=== PATIENT | female | born 1945 | race Caucasian/White ===

== ENCOUNTER 2017-08-07 12:36 | Inpatient (IN) | payer MEDICARE, BC ==
--- NOTE | 2017-08-07 13:15 | EDM.PDOC ---
ED HPI GENERAL MEDICAL PROBLEM - General Chief Complaint: Lower Extremity Injury/Pain Stated Complaint: BY AMBULANCE Time Seen by Provider: 08/07/17 13:05 Source of Information: Reports: Patient History Limitations: Reports: No Limitations - History of Present Illness INITIAL COMMENTS - FREE TEXT/NARRATIVE: Patient comes emergency Department from home by ambulance with complaints of a fall at home. Just prior to arrival patient was at home in a door was stuck closed and she was using her left arm to try to open it. She tried to shove it open with her left shoulder/arm and ended up falling on her left side injuring her left shoulder left elbow and left hip. She denies any loss of consciousness. She denies any head and neck or back pain. She denies any numbness or tingling to any of her extremities. She does complain of left shoulder pain on palpation as well as left elbow swelling and tenderness. She also complains of tenderness to her left hip. She denies any change in her bowel or bladder habits. She refuses to have a tetanus shot. She does have an abrasion on the left elbow. Left Arm Pain Score (Numeric/FACES): 5 Hip Pain Score (Numeric/FACES): 5 - Related Data Allergies Allergy/AdvReac Type Severity Reaction Status Date / Time butorphanol tartrate Allergy Cannot Verified 06/01/16 07:48 [From Stadol] Remember gabapentin Allergy Nausea Verified 06/01/16 07:48 penicillin Allergy Rash Verified 06/01/16 07:48 propoxyphene HCl Allergy Nausea Verified 06/01/16 07:48 [From Darvon] Home Meds: Home Meds Ascorbic Acid 500 mg PO DAILY 08/02/15 [History] Aspirin [Low Dose Aspirin EC] 81 mg PO DAILY 08/02/15 [History] Calcium Carbonate/Vitamin D3 [Calcium 600 + Vit D 400 Tablet] 1 each PO BID [History] Cranberry 500 mg PO BID 08/02/15 [History] Docusate Sodium 100 mg PO BID PRN 08/02/15 [History] Glimepiride 1 mg PO WITHBREAKFAST 08/02/15 [History] Glucosamine [Glucosamine Sulfate] 500 mg PO DAILY 08/02/15 [History] Loratadine [Claritin] 10 mg PO DAILY PRN 08/02/15 [History] Melatonin 3 mg PO BEDTIME 08/02/15 [History] atorvaSTATin [Lipitor] 20 mg PO DAILY 08/02/15 [History] metFORMIN [Glucophage XR] 500 mg PO BIDMEALS 08/02/15 [History] Clobetasol Propionate 1 applic TOP ASDIRECTED 05/28/16 [History] Fluticasone Propionate [Flonase Allergy Relief] 1 squirt NASBOTH DAILY 05/28/16 [History] Ibuprofen [Advil] 400 mg PO Q6H PRN 05/28/16 [History] Magnesium Hydroxide [Milk of Magnesia] 30 ml PO DAILY PRN 05/28/16 [History] Past Medical History HEENT History: Reports: Impaired Vision Cardiovascular History: Reports: Blood Clots/VTE/DVT, High Cholesterol Respiratory History: Reports: None Gastrointestinal History: Reports: Diverticulosis, Hepatitis, Irritable Bowel Syndrome Genitourinary History: Reports: Renal 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: Other OB/BYN History: ovarian cyst Musculoskeletal History: Reports: Arthritis, Back Pain, Chronic, Other (See Below) Other Musculoskeletal History: HX OF LEFT DISTAL FIBULA FRACTURE; DDD; CHRONIC LEFT SI JOINT; HX OF HUMERUS AND RADIUS ULNA FRACTURE Neurological History: Reports: None Psychiatric History: Reports: None Endocrine/Metabolic History: Reports: Diabetes, Type II, Obesity/BMI 30+, Osteopenia Hematologic History: Reports: None Immunologic History: Reports: None Oncologic (Cancer) History: Reports: None Dermatologic History: Reports: None - Past Surgical History Head Surgeries/Procedures: Reports: None Respiratory Surgical History: Reports: None Female Surgical History: Reports: Hysterectomy, Salpingo-Oophorectomy, Tubal Ligation, Other (See Below) Neurological Surgical History: Reports: None Musculoskeletal Surgical History: Reports: ORIF, Other (See Below) Oncologic Surgical History: Reports: None Dermatological Surgical History: Reports: None Social & Family History - Tobacco Use Smoking Status *Q: Never Smoker Second Hand Smoke Exposure: No - Caffeine Use Caffeine Use: Reports: Coffee - Recreational Drug Use Recreational Drug Use: No Review of Systems - Review of Systems Review Of Systems: ROS reveals no pertinent complaints other than HPI. ED EXAM, GENERAL - Physical Exam Exam: See Below Exam Limited By: No Limitations General Appearance: Alert, WD/WN, No Apparent Distress Eye Exam: Bilateral Eye: Normal Inspection Nose: Normal Inspection, Normal Mucosa Throat/Mouth: Normal Inspection Head: Atraumatic, Normocephalic Neck: Normal Inspection, Supple, Non-Tender, Full Range of Motion Respiratory/Chest: No Respiratory Distress, Lungs Clear, Normal Breath Sounds, No Accessory Muscle Use, Chest Non-Tender Cardiovascular: Normal Peripheral Pulses, Regular Rate, Rhythm Peripheral Pulses: 2+: Radial (L), Radial (R), Posterior Tibial (L), Posterior Tibial (R), Dorsalis Pedis (L), Dorsalis Pedis (R) GI/Abdominal: Normal Bowel Sounds, Soft, Non-Tender (Female) Exam: Deferred Rectal (Female) Exam: Deferred Back Exam: Normal Inspection, Full Range of Motion. No: CVA Tenderness (L), CVA Tenderness (R), Decreased Range of Motion, Muscle Spasm, Paraspinal Tenderness, Vertebral Tenderness Extremities: No Pedal Edema, Normal Capillary Refill, Limited Range of Motion ( To the left elbow.), Other (The left elbow on the posterior aspect does have approximately golf ball size hematoma as well as a small abrasion. There is no bony deformity or crepitus. Left shoulder is mildly tender on the very lateral aspect. She is able to put it through range of motion without severe pain. Tenderness to the left hip on palpation. No bony deformity crepitus bruising around normality. Decreased range of motion due to pain.) Neurological: Alert, Oriented, CN II-XII Intact, Normal Cognition, Normal Reflexes, No Motor/Sensory Deficits Psychiatric: Normal Affect, Normal Mood Skin Exam: Warm, Dry, Normal Color Lymphatic: No Adenopathy Course - Vital Signs Last Recorded V/S: Last Vital Signs Temp 36.3 C 08/07/17 12:51 Pulse 79 08/07/17 12:51 Resp 18 08/07/17 12:51 BP 106/59 L 08/07/17 16:23 Pulse Ox 100 08/07/17 12:51 Vital Signs 08/07/17 08/07/17 08/07/17 12:48 12:51 13:10 Temperature [ 36.3 C 36.3 C Temporal] Pulse, 76 79 Peripheral [ Right Pulse Oximetry] Respiratory 19 18 Rate Blood Pressure 139/60 131/69 124/65 [Right Upper Arm] O2 Sat by Pulse 94 L 100 Oximetry 08/07/17 08/07/17 16:16 16:23 Temperature [ Temporal] Pulse, Peripheral [ Right Pulse Oximetry] Respiratory Rate Blood Pressure 106/59 L 106/59 L [Right Upper Arm] O2 Sat by Pulse Oximetry - Orders/Labs/Meds Orders: Active Orders 24 hr Category Date Time Status Peripheral IV Care [RC] . DIRECTED Care 08/07/17 15:13 Active Elbow 2V Lt [CR] Urgent Exams 08/07/17 13:10 Taken Hip Min 2V or 3V w Pelvis Lt [CR] Stat Exams 08/07/17 13:10 Taken Pelvis w Cont [CT] Routine Exams 08/07/17 15:53 Ordered Shoulder Comp Lt [CR] Urgent Exams 08/07/17 13:10 Taken Sodium Chloride 0.9% [Saline Flush] Med 08/07/17 15:12 Active 10 ml FLUSH ASDIRECTED PRN Peripheral IV Insertion Adult [OM.PC] Stat Oth 08/07/17 15:12 Ordered Medication Orders Sodium Chloride (Saline Flush) 10 ml FLUSH ASDIRECTED PRN PRN Reason: Keep Vein Open Meds: Medications Generic Name Dose Route Start Last Admin Trade Name Freq PRN Reason Stop Dose Admin Sodium Chloride 10 ml 08/07/17 15:12 Saline Flush FLUSH ASDIRECTED PRN Keep Vein Open Discontinued Medications Generic Name Dose Route Start Last Admin Trade Name Freq PRN Reason Stop Dose Admin Morphine Sulfate 4 mg 08/07/17 15:17 08/07/17 15:35 Morphine IVPUSH 08/07/17 15:18 4 mg ONETIME ONE Administration - Radiology Interpretation Free Text/Narrative:: X-ray left shoulder negative when reviewed extent previously by myself. X-ray left elbow negative for acute bony abnormality large amount of surgical hardware in place does not appear to be dislodged or disrupted. Dr. Herr orthopedist in [place] agrees with this as well. X-ray left hip and pelvis does indicate a comminuted symphysis pubis fracture as well as a left inferior rami fracture. Radiological review to follow. X-ray per radiology of the left shoulder no fracture or subluxation. Comminuted left symphysis pubis. A symphysis fracture with extension into the adjacent superior and probably inferior pubic rami. Possible right sacral nondisplaced fracture. CT recommended for further evaluation per radiology. X-ray of the left elbow interval open reduction internal fixation of distal left humeral and proximal left ulna fractures. No mechanical failure or loosening. Interval healing of prior fractures. No definitive superimposed acute fracture on today' s exam or subluxation. - Re-Assessments/Exams Free Text/Narrative Re-Assessment/Exam: 08/07/17 15:31 Patient was given an IV and morphine for pain. I relayed the findings of the pelvic fracture to the patient and her family. No surgery is necessary at this time and conservative management with weightbearing as tolerated and pain management as indicated per Dr. Herr in [place]. Departure - Departure Time of Disposition: 16:29 Disposition: Admitted As Inpatient 66 Clinical Impression: Fracture of pelvis Contusion of elbow, left Qualifiers: Encounter type: initial encounter Qualified Code(s): S50.02XA - Contusion of left elbow, initial encounter - Discharge Information ED Communication - ED Communication Date/Time Date: 08/07/17 (Called and spoke with the Ortho trauma surgeon organ tuner electronic at [facility] and he had the images available. Dr. Herr relayed that this is not a operable fracture and pain management and PT/OT and recheck with ortho in a week is recommended. ) Time Called: 15:08 - Discussed Case With (1) Discussed Case With (1): Admitting Provider (DR. Ngo, HPI ER COURSE and findings were relayed to him verbally over the phone. Questions answered. He accpeted the patient in his care here at [facility].) - My Orders Last 24 Hours: My Active Orders 08/07/17 13:10 Elbow 2V Lt [CR] Urgent Hip Min 2V or 3V w Pelvis Lt [CR] Stat Shoulder Comp Lt [CR] Urgent 08/07/17 15:12 Sodium Chloride 0.9% [Saline Flush] 10 ml FLUSH ASDIRECTED PRN Peripheral IV Insertion Adult [OM.PC] Stat 08/07/17 15:13 Peripheral IV Care [RC] . DIRECTED 08/07/17 15:53 Pelvis w Cont [CT] Routine - Assessment/Plan Last 24 Hours: My Active Orders 08/07/17 13:10 Elbow 2V Lt [CR] Urgent Hip Min 2V or 3V w Pelvis Lt [CR] Stat Shoulder Comp Lt [CR] Urgent 08/07/17 15:12 Sodium Chloride 0.9% [Saline Flush] 10 ml FLUSH ASDIRECTED PRN Peripheral IV Insertion Adult [OM.PC] Stat 08/07/17 15:13 Peripheral IV Care [RC] . DIRECTED 08/07/17 15:53 Pelvis w Cont [CT] Routine Assessment:: Fall with a left superior rami fracture and symphysis pubis comminuted in nature. No surgical intervention advised at this time. Contusion of the left elbow negative x-ray unchanged hardware from previous repair of left complex humerus fracture. Plan: Admit for pain management physical therapy and occupational therapy due to the rami fracture and pain.
[2017-08-07] MEDS ORDERED: Morphine 4 MG/ML Syringe IVPUSH ONE (15:17)
--- NOTE | 2017-08-07 16:20 | PCM.HP ---
H&P History of Present Illness - General Date of Service: 08/07/17 Admit Problem/Dx: Pt was admitted after fall at home with Injury to Left shoulder, Left elbow and left Hip Source of Information: Patient, Old Records History Limitations: Reports: No Limitations - History of Present Illness Initial Comments - Free Text/Narative: Lupe Drummondis a 71 y.o.female with medical history significant for type 2 diabetes mellitus,hyperlipidemia, and history of nephrolithiasis with multiple shockwave lithotripsy, who had closed Left distal Humerus intra-articular fracture in 2014 and had Open reduction internal fixation of left distal humerus fracture as well as Anterior transposition of left ulnar nerve on but she continued to have problem and again on 08/21/2015 she had Revision of open reduction and internalfixation of left olecranon osteotomy. she has chronic low back and left gluteal pain and had undergone L4-5, L5-S1 radiofrequency ablation on 02/16/17 and getting followed at [facility] pain clinic Today ( ) Patient [place] emergency Department from home by ambulance with complaints of a fall at home. Just prior to arrival patient was at home in a door that was stuck closed and she was using her left arm to try to open it. She tried to keep it open with her left shoulder/arm and ended up falling on her left side injuring her left shoulder left elbow and left hip. She denies any loss of consciousness. She denies any head and neck or back pain. She denies any numbness or tingling to any of her extremities. She does complain of left shoulder pain on palpation as well as left elbow swelling and tenderness. She also complains of tenderness to her left hip. She denies any change in her bowel or bladder habits. She does have an abrasion on the left elbow. X-ray left shoulder done on ( 08/07) - negative for fracture or subluxation, Xray of B/L hip and Pelvis ( 08/07): Comminuated left symphysis pubis/ parasymphysis fracture with extension into the adjacent superior and probably inferior pubic rami, possible right sacral nondisplaced fracture, also recommended Pelvic CT with IV contrast ( 08/07/17): Commuinuted moderately impacted fracture of the left symphysis Pubis with extension to to the medial superior Pubic Ramus, urinary bladder rupture cannot be suspected, also had X- ray of Left elbow ( 08/07): : No definitive superimposed acute fracture, No subluxation ER talk to [facility] Orthopedic middleware solutions architect and recommended pain management, PT/OT and follow up with Ortho in a week at [facility]. Onset of Symptoms: Reports: Today Location: Reports: Upper Extremity, Left (pain) Quality: Reports: Sharp Left Arm Pain Score (Numeric/FACES): 5 Hip Pain Score (Numeric/FACES): 5 - Related Data Allergies/Adverse Reactions: Allergies Allergy/AdvReac Type Severity Reaction Status Date / Time butorphanol tartrate Allergy Cannot Verified 08/07/17 17:38 [From Stadol] Remember gabapentin Allergy Nausea Verified 08/07/17 17:38 penicillin Allergy Rash Verified 08/07/17 17:38 propoxyphene HCl Allergy Nausea Verified 08/07/17 17:38 [From Darvon] Home Medications: Home Meds Ascorbic Acid 500 mg PO DAILY 08/02/15 [History] Aspirin [Low Dose Aspirin EC] 81 mg PO DAILY 08/02/15 [History] Calcium Carbonate/Vitamin D3 [Calcium 600 + Vit D 400 Tablet] 1 each PO BID [History] Cranberry 500 mg PO BID 08/02/15 [History] Docusate Sodium 100 mg PO BID PRN 08/02/15 [History] Glimepiride 1 mg PO WITHBREAKFAST 08/02/15 [History] Glucosamine [Glucosamine Sulfate] 500 mg PO DAILY 08/02/15 [History] Loratadine [Claritin] 10 mg PO DAILY PRN 08/02/15 [History] Melatonin 3 mg PO BEDTIME 08/02/15 [History] atorvaSTATin [Lipitor] 20 mg PO DAILY 08/02/15 [History] metFORMIN [Glucophage XR] 500 mg PO BIDMEALS 08/02/15 [History] Clobetasol Propionate 1 applic TOP ASDIRECTED 05/28/16 [History] Fluticasone Propionate [Flonase Allergy Relief] 1 squirt NASBOTH DAILY 05/28/16 [History] Ibuprofen [Advil] 400 mg PO Q6H PRN 05/28/16 [History] Magnesium Hydroxide [Milk of Magnesia] 30 ml PO DAILY PRN 05/28/16 [History] Polyethylene Glycol 3350 [MiraLAX] 17 gm PO DAILY PRN 08/07/17 [History] Past Medical History HEENT History: Reports: Impaired Vision Cardiovascular History: Reports: Blood Clots/VTE/DVT, High Cholesterol Respiratory History: Reports: None Gastrointestinal History: Reports: Diverticulosis, Hepatitis, Irritable Bowel Syndrome Genitourinary History: Reports: Renal 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: Other OB/BYN History: ovarian cyst Musculoskeletal History: Reports: Arthritis, Back Pain, Chronic, Other (See Below) Other Musculoskeletal History: HX OF LEFT DISTAL FIBULA FRACTURE; DDD; CHRONIC LEFT SI JOINT; HX OF HUMERUS AND RADIUS ULNA FRACTURE Neurological History: Reports: None Psychiatric History: Reports: None Endocrine/Metabolic History: Reports: Diabetes, Type II, Obesity/BMI 30+, Osteopenia Hematologic History: Reports: None Immunologic History: Reports: None Oncologic (Cancer) History: Reports: None Dermatologic History: Reports: None - Past Surgical History Head Surgeries/Procedures: Reports: None Respiratory Surgical History: Reports: None Female Surgical History: Reports: Hysterectomy, Salpingo-Oophorectomy, Tubal Ligation, Other (See Below) Neurological Surgical History: Reports: None Musculoskeletal Surgical History: Reports: ORIF, Other (See Below) Oncologic Surgical History: Reports: None Dermatological Surgical History: Reports: None Social & Family History - Tobacco Use Smoking Status *Q: Never Smoker Second Hand Smoke Exposure: No - Caffeine Use Caffeine Use: Reports: Coffee - Recreational Drug Use Recreational Drug Use: No H&P Review of Systems - Review of Systems: Review Of Systems: See Below General: Reports: Other (Hip pain and elbow, shoulder pain). Denies: Fever, Chills, Weakness HEENT: Reports: Headaches. Denies: Dysphasia, Sinus Congestion, Visual Changes Pulmonary: Denies: Shortness of Breath, Wheezing, Pleuritic Chest Pain, Cough, Sputum, Hemoptysis Cardiovascular: Denies: Chest Pain, Lightheadedness Gastrointestinal: Denies: Abdominal Pain, Nausea, Vomiting Musculoskeletal: Reports: Shoulder Pain (left , left elbow and left hip pain) Skin: Denies: Cyanosis, Bruising, Pruritis, Erythema Psychiatric: Denies: Confusion, Depression Neurological: Denies: Confusion, Tingling, Tremors Hematologic/Lymphatic: Reports: No Symptoms Immunologic: Reports: No Symptoms Exam - Exam Exam: See Below - Vital Signs Vital Signs: Last Vital Signs Temp 36.3 C 08/07/17 12:51 Pulse 79 08/07/17 12:51 Resp 18 08/07/17 12:51 BP 131/69 08/07/17 12:51 Pulse Ox 100 08/07/17 12:51 Weight: 68.039 kg - Exam Quality Assessment: DVT Prophylaxis. No: Supplemental Oxygen, Urinary Catheter General: Alert, Oriented, Cooperative HEENT: Conjunctiva Clear, EOMI, Hearing Intact, Mucosa Moist & [place] Neck: Supple. No: JVD, Thyromegaly Lungs: Clear to Auscultation, Normal Respiratory Effort. No: Crackles, Wheezing Cardiovascular: Regular Rate, Regular Rhythm, Systolic Murmur GI/Abdominal Exam: Normal Bowel Sounds, Soft, Non-Tender, No Distention. No: Guarding, Rigid, Rebound, Tender (Female) Exam: Deferred Rectal (Female) Exam: Deferred Back Exam: Normal Inspection, Full Range of Motion Extremities: Normal Inspection, No Pedal Edema, Other (Left elbow Hematoma) Skin: Warm, Dry, Intact Neurological: Cranial Nerves Intact, Reflexes Equal Bilateral Neuro Extensive - Mental Status: Alert, Oriented x3, Normal Mood/Affect, Normal Cognition, Memory Intact Neuro Extensive - Motor, Sensory, Reflexes: CN II-XII Intact, Normal Gait, Normal Reflexes Psychiatric: Alert, Normal Affect, Normal Mood - Patient Data Result Diagrams: 08/07/17 18:05 08/07/17 18:05 *Q Meaningful Use (ADM) - VTE *Q VTE Criteria *Q: - Stroke *Q Stroke Criteria *Q: - AMI *Q AMI Criteria *Q: - Problem List (1) Contusion of elbow, left SNOMED Code(s): 68183624 ICD Code: S50.02XA - CONTUSION OF LEFT ELBOW, INITIAL ENCOUNTER Status: Acute Current Visit: Yes (2) Fracture of pelvis SNOMED Code(s): 60926788 ICD Code: S32.9XXA - FRACTURE OF UNSP PARTS OF LUMBOSACRAL SPINE AND PELVIS, INIT Status: Acute Current Visit: Yes (3) Diabetes SNOMED Code(s): 77535368 ICD Code: E11.9 - TYPE 2 DIABETES MELLITUS WITHOUT COMPLICATIONS Status: Acute Current Visit: Yes (4) Constipation SNOMED Code(s): 58618075 ICD Code: K59.00 - CONSTIPATION, UNSPECIFIED Status: Acute Current Visit : Yes Problem List Initiated/Reviewed/Updated: Yes Orders Last 24hrs: Medication Orders Sodium Chloride (Saline Flush) 10 ml FLUSH ASDIRECTED PRN PRN Reason: Keep Vein Open Assessment/Plan Comment:: Lpue Weathers~is a 71 y.o.female with medical history significant for type 2 diabetes mellitus,hyperlipidemia, and history of nephrolithiasis with multiple shockwave lithotripsy, who had closed Left distal Humerus intra-articular fracture in 2014 and had Open reduction internal fixation of left distal humerus fracture as well as Anterior transposition of left ulnar nerve on but she continued to have problem and again on 08/21/2015 she had Revision of open reduction and internalfixation of left olecranon osteotomy. she has chronic low back and left gluteal pain and had undergone L4-5, L5-S1 radiofrequency ablation on 02/16/17 and getting followed at [facility] pain clinic. Today she was admitted after a fall at home which lead to contusion of Left elbow, left shoulder pian and Comminuted fracture of Left Pubis symphysis and possible Rt sacral non-displaced fracture. Assesment and Plan: 1. Comminuted fracture of Left Pubis symphysis and possible Rt sacral non- displaced fracture. - Her Imaging studies reviewed by Orthi at [facility] and recommended pain control and PT/OT evaluation and also will be followed in Ortho clinic in a week _will start Percocet 5/325 q6 hrs PRN pain -Will give INV Morphine 2 mg IV q 6 PRN for breakthrough Pain -Continue diabetic oral diet -Will place consult for PT/OT evaluation and treatment 2. Diabetes II: The pt was on Metformin and had a contrast exposure today -Will hold metformin -Will start Amaryl 4 mg daily -continue blood sugar check 4 times a day 3. Constipation: Pt is chronically constipated -Will start her on bowel regimen 4. GI prophylaxis: start protonix daily 5. DVT prophylaxis: Heparin 5000 units q8 hrs 6. Code status: Full Code
[2017-08-07] MEDS ORDERED: Iopamidol 612 MG/ML 75 ML Bottle IVPUSH ONE (16:28)
[2017-08-07] MEDS: Acetaminophen/oxyCODONE 325-5 MG Tab PO PRN (18:18)
[2017-08-07 18:35] LABS: CHLORIDE,CL 105 mmol/L (101-111); SODIUM,NA 139 mmol/L (135-145)
[2017-08-07] MEDS ORDERED: Docusate Sodium 100 MG Cap PO PRN ×2 (18:40→18:49)
[2017-08-07] MEDS ORDERED: Heparin Sodium 5,000 Units/ML Vial SUBCUT SCH (18:45)
[2017-08-07] MEDS ORDERED: Magnesium Hydroxide 400 MG/5 ML Susp 30 ML Cup PO PRN (18:49)
[2017-08-07] MEDS ORDERED: Loratadine 10 MG Tab PO PRN (19:15)
[2017-08-07] MEDS: Sodium Chloride 0.9% 10 ML Syringe FLUSH PRN (19:36)
[2017-08-07] MEDS: Morphine 2 MG/ML Syringe IVPUSH PRN (19:37)
[2017-08-07] MEDS: Glimepiride 2 MG Tab PO SCH (19:54)
[2017-08-07] MEDS ORDERED: Non-Formulary Medication 1 Each (Melatonin [Melatonin] 3 MG) PO SCH (21:00)
[2017-08-07] MEDS: Calcium Carbonate/Vitamin D3 1250 MG-200 Unit Tab PO SCH (22:25)
[2017-08-07] MEDS: Heparin Sodium 5,000 Units/ML Vial SUBCUT SCH (22:25)
[2017-08-07] MEDS: Polyethylene Glycol 3350 Powder 17 GM Packet PO PRN (22:30)
[2017-08-07] MEDS: Acetaminophen 325 MG Tab PO PRN (22:32)
[2017-08-08] MEDS: Acetaminophen/oxyCODONE 325-5 MG Tab PO PRN (02:03)
[2017-08-08] MEDS: Heparin Sodium 5,000 Units/ML Vial SUBCUT SCH ×3 (06:01→21:56)
[2017-08-08 06:59] LABS: CHLORIDE,CL 101 mmol/L (101-111); SODIUM,NA 136 mmol/L (135-145)
[2017-08-08] MEDS: Aspirin 81 MG Tab.EC PO SCH (08:45)
[2017-08-08] MEDS: Glimepiride 2 MG Tab PO SCH ×2 (08:45→17:34)
[2017-08-08] MEDS: Calcium Carbonate/Vitamin D3 1250 MG-200 Unit Tab PO SCH ×2 (08:45→21:53)
[2017-08-08] MEDS: Ascorbic Acid 500 MG Tab PO SCH (08:45)
[2017-08-08] MEDS: atorvaSTATin 20 MG Tab PO SCH (08:45)
[2017-08-08] MEDS: Morphine 2 MG/ML Syringe IVPUSH PRN ×2 (08:46→15:23)
[2017-08-08] MEDS: Sodium Chloride 0.9% 10 ML Syringe FLUSH PRN (08:47)
[2017-08-08] MEDS ORDERED: CRANBERRY 450 MG PO SCH (09:57)
[2017-08-08] MEDS: Non-Formulary Medication 1 Each (Cranberry [Cranberry] 500 MG) PO SCH (10:01)
[2017-08-08] MEDS ORDERED: oxyCODONE 5 MG Tab PO PRN (10:51)
[2017-08-08] MEDS: oxyCODONE 5 MG Tab PO PRN ×3 (10:58→23:17)
[2017-08-08] MEDS: Metoclopramide 10 MG/2 ML SDV IVPUSH PRN ×2 (11:36→17:00)
--- NOTE | 2017-08-08 11:37 | PCM.PN ---
- General Info Date of Service: 08/08/17 Admission Dx/Problem (Free Text): Pt was admitted after fall at home with Injury to Left shoulder, Left elbow and left Hip Subjective Update: she is still having pain, had her AM meals, Feels sleepy, No nausea or Vomiting , No fever or Chill, has pain with movement of Left arm Functional Status: Reports: Pain Controlled, Tolerating Diet, Urinating - Review of Systems General: Reports: Appetite (good). Denies: Fever, Chills HEENT: Denies: Ear Pain, Eye Pain, Headaches, Sore Throat, Visual Changes Pulmonary: Denies: Shortness of Breath, Pleuritic Chest Pain, Cough, Sputum, Wheezing Cardiovascular: Denies: Chest Pain, Dyspnea on Exertion, Lightheadedness Gastrointestinal: Reports: Constipation, Nausea. Denies: Abdominal Pain, Vomiting Genitourinary: Denies: Dysuria, Burning, Urgency, Flank Pain Musculoskeletal: Reports: Shoulder Pain (Left), Arm Pain (left), Back Pain, Other (Left Hip Pain) Skin: Denies: Jaundice, Diaphoresis, Dryness, Pruritis, Rash Neurological: Denies: Confusion, Numbness, Tingling, Tremors Psychiatric: Reports: No Symptoms - Patient Data Vitals - Most Recent: Last Vital Signs Temp 36.5 C 08/08/17 08:56 Pulse 72 08/08/17 08:56 Resp 20 08/08/17 08:56 BP 104/48 L 08/08/17 08:56 Pulse Ox 96 08/08/17 08:56 Weight - Most Recent: 68.039 kg I&O - Last 24 Hours: Intake & Output 08/07/17 08/08/17 08/08/17 22:59 06:59 14:59 Intake Total 850 300 200 Output Total 600 Balance 250 300 200 Lab Results Last 24 Hours: Laboratory Results - last 24 hr 08/07/17 08/08/17 08/08/17 Range/Units 21:24 06:25 06:25 WBC 6.5 (5.0-10.0) 10^3/uL RBC 4.03 L (4.2-5.4) 10^6/uL Hgb 12.2 (12.0-16.0) g/dL Hct 36.6 L (37.0-47.0) % MCV 90.8 (80-100) fL MCH 30.3 (27.0-34.0) pg MCHC 33.3 (33.0-35.0) g/dL Plt Count 145 L (150-450) 10^3/uL Neut % (Auto) 64.2 (42.2-75.2) % Lymph % (Auto) 25.8 (20.5-50.1) % [place] % (Auto) 6.6 (2-8) % Eos % (Auto) 3.1 H (1.0-3.0) % Baso % (Auto) 0.3 (0.0-1.0) % Sodium 136 (135-145) mmol/L Potassium 3.6 (3.6-5.0) mmol/L Chloride 101 (101-111) mmol/L Carbon Dioxide 26.0 (21.0-31.0) mmol/L Anion Gap 12.6 BUN 15 (7-18) mg/dL Creatinine 0.4 L (0.6-1.3) mg/dL Est Cr Clr Drug Dosing 116.08 mL/min Estimated GFR (MDRD) > 60 Glucose 106 H (74-105) mg/dL POC Glucose 229 H (83-110) mg/dl Calcium 8.7 (8.4-10.2) mg/dl 08/08/17 08/08/17 Range/Units 07:36 11:16 WBC (5.0-10.0) 10^3/uL RBC (4.2-5.4) 10^6/uL Hgb (12.0-16.0) g/dL Hct (37.0-47.0) % MCV (80-100) fL MCH (27.0-34.0) pg MCHC (33.0-35.0) g/dL Plt Count (150-450) 10^3/uL Neut % (Auto) (42.2-75.2) % Lymph % (Auto) (20.5-50.1) % [place] % (Auto) (2-8) % Eos % (Auto) (1.0-3.0) % Baso % (Auto) (0.0-1.0) % Sodium (135-145) mmol/L Potassium (3.6-5.0) mmol/L Chloride (101-111) mmol/L Carbon Dioxide (21.0-31.0) mmol/L Anion Gap BUN (7-18) mg/dL Creatinine (0.6-1.3) mg/dL Est Cr Clr Drug Dosing mL/min Estimated GFR (MDRD) Glucose (74-105) mg/dL POC Glucose 85 161 H (83-110) mg/dl Calcium (8.4-10.2) mg/dl Med Orders - Current: Current Medications Acetaminophen (Tylenol) 650 mg PO Q4H PRN PRN Reason: Pain (mild 1-3 )/fever Last Admin: 08/07/17 22:32 Dose: 650 mg Ascorbic Acid (Vitamin C) 500 mg PO DAILY [facility] Last Admin: 08/08/17 08:45 Dose: 500 mg Aspirin (Halfprin) 81 mg PO DAILY [facility] Last Admin: 08/08/17 08:45 Dose: 81 mg Atorvastatin Calcium (Lipitor) 20 mg PO DAILY [facility] Last Admin: 08/08/17 08:45 Dose: 20 mg Calcium Carbonate (Calcium Carbonate/Vitamin D 1250 Mg-200 Unit) 1 tab PO BID [facility] Last Admin: 08/08/17 08:45 Dose: 1 tab Docusate Sodium (Colace) 100 mg PO BID PRN PRN Reason: Constipation Glimepiride (Amaryl) 2 mg PO BIDMEALS [facility] Last Admin: 08/08/17 08:45 Dose: 2 mg Heparin Sodium (Porcine) (Heparin Sodium) 5,000 units SUBCUT Q8H [facility] Last Admin: 08/08/17 06:01 Dose: 5,000 units Loratadine (Claritin) 10 mg PO DAILY PRN PRN Reason: CONGESTION Magnesium Hydroxide (Milk Of Magnesia) 30 ml PO DAILY PRN PRN Reason: Constipation Metoclopramide HCl (Reglan) 5 mg IVPUSH Q6H PRN PRN Reason: Nausea Morphine Sulfate (Morphine) 2 mg IVPUSH Q4H PRN PRN Reason: Pain Last Admin: 08/08/17 08:46 Dose: 2 mg Non-Formulary Medication (Nf Drug) 1 each PO TID [facility] Non-Formulary Medication (Cranberry [Cranberry]) 450 mg PO DAILY [facility] Non-Formulary Medication (Nf Drug) 1 each PO BID [facility] Oxycodone HCl (Oxycodone) 10 mg PO Q4H PRN PRN Reason: Pain Last Admin: 08/08/17 10:58 Dose: 10 mg Oxycodone HCl (Oxycodone) 5 mg PO Q8H PRN PRN Reason: Pain Polyethylene Glycol (Miralax) 17 gm PO DAILY PRN PRN Reason: Constipation Last Admin: 08/07/17 22:30 Dose: 17 gm Sodium Chloride (Saline Flush) 10 ml FLUSH ASDIRECTED PRN PRN Reason: Keep Vein Open Last Admin: 08/08/17 08:47 Dose: 10 ml Discontinued Medications Docusate Sodium (Colace) 100 mg PO DAILY PRN PRN Reason: Constipation Heparin Sodium (Porcine) (Heparin Sodium) 5,000 units SUBCUT Q8H [facility] Last Admin: 08/07/17 22:56 Dose: Not Given Iopamidol (Isovue-300 (61%)) 75 ml IVPUSH ONETIME ONE Stop: 08/07/17 16:29 Last Admin: 08/07/17 16:52 Dose: 75 ml Morphine Sulfate (Morphine) 4 mg IVPUSH ONETIME ONE Stop: 08/07/17 15:18 Last Admin: 08/07/17 15:35 Dose: 4 mg Non-Formulary Medication (Cranberry [Cranberry]) 500 mg PO BID [facility] Last Admin: 08/08/17 10:01 Dose: Not Given Non-Formulary Medication (Melatonin [Melatonin]) 3 mg PO BEDTIME [facility] Last Admin: 08/08/17 10:00 Dose: Not Given Non-Formulary Medication (Cranberry [Cranberry]) 450 mg PO BID [facility] Oxycodone/Acetaminophen (Percocet 325-5 Mg) 1 tab PO Q6H PRN PRN Reason: Pain Last Admin: 08/08/17 02:03 Dose: 1 tab - Exam Quality Assessment: DVT Prophylaxis. No: Supplemental Oxygen, Urine Catheter General: Alert, Oriented, Cooperative, No Acute Distress HEENT: Pupils Equal, Pupils Reactive, Mucous Membr. Moist/Holiday Neck: Supple, No JVD, No Thyromegaly Lungs: Clear to Auscultation, Normal Respiratory Effort Cardiovascular: Regular Rate, Regular Rhythm, Murmurs GI/Abdominal Exam: Normal Bowel Sounds, Soft, Non-Tender. No: Guarding, Rigid, Rebound (Female) Exam: Deferred Back Exam: Normal Inspection Extremities: Normal Inspection, No Pedal Edema Skin: Warm, Dry, Intact Neurological: No New Focal Deficit Psy/Mental Status: Alert, Normal Affect, Normal Mood - Problem List & Annotations (1) Contusion of elbow, left SNOMED Code(s): 54411009 Code(s): S50.02XA - CONTUSION OF LEFT ELBOW, INITIAL ENCOUNTER Status: Acute Current Visit: Yes (2) Fracture of pelvis SNOMED Code(s): 20069762 Code(s): S32.9XXA - FRACTURE OF UNSP PARTS OF LUMBOSACRAL SPINE AND PELVIS, INIT Status: Acute Current Visit: Yes (3) Diabetes SNOMED Code(s): 83341024 Code(s): E11.9 - TYPE 2 DIABETES MELLITUS WITHOUT COMPLICATIONS Status: Acute Current Visit: Yes (4) Constipation SNOMED Code(s): 65809211 Code(s): K59.00 - CONSTIPATION, UNSPECIFIED Status: Acute Current Visit: Yes - Problem List Review Problem List Initiated/Reviewed/Updated: Yes - My Orders Last 24 Hours: My Active Orders 08/07/17 18:49 Docusate Sodium [Colace] 100 mg PO BID PRN Magnesium Hydroxide [Milk of Magnesia] 30 ml PO DAILY PRN Polyethylene Glycol 3350 [MiraLAX] 17 gm PO DAILY PRN 08/07/17 18:54 Morphine 2 mg IVPUSH Q4H PRN 08/07/17 19:00 POC Glucose [Blood Glucose Check, Bedside] [RC] QIDACANDBED Glimepiride [Amaryl] 2 mg PO BIDMEALS 08/07/17 19:01 PT Evaluation and Treatment [CONS] Routine 08/07/17 19:02 OT Evaluation and Treatment [CONS] Routine 08/07/17 19:03 Bedrest Bathroom Privileges [RC] ASDIRECTED 08/07/17 19:15 Loratadine [Claritin] 10 mg PO DAILY PRN 08/07/17 21:00 Calcium Carbonate/Vitamin D3 [Calcium Carbonate/Vitamin D 1250 MG-200 Unit] 1 tab PO BID 08/07/17 22:00 Heparin Sodium 5,000 units SUBCUT Q8H 08/07/17 Dinner Consistent Carbohydrate Diet [DIET] 08/08/17 09:00 Ascorbic Acid [Vitamin C] 500 mg PO DAILY Aspirin [Halfprin] 81 mg PO DAILY atorvaSTATin [Lipitor] 20 mg PO DAILY 08/08/17 10:00 Non-Formulary Medication [NF Drug] 1 each PO BID Non-Formulary Medication [NF Drug] 1 each PO TID 08/08/17 10:35 oxyCODONE 10 mg PO Q4H PRN 08/08/17 10:51 oxyCODONE 5 mg PO Q8H PRN 08/08/17 10:57 Metoclopramide [Reglan] 5 mg IVPUSH Q6H PRN 08/09/17 09:00 Cranberry [Cranberry] 450 mg PO DAILY - Plan Plan:: Lupe Drummondis a 71 y.o.female with medical history significant for type 2 diabetes mellitus,hyperlipidemia, and history of nephrolithiasis with multiple shockwave lithotripsy, who had closed Left distal Humerus intra-articular fracture in 2014 and had Open reduction internal fixation of left distal humerus fracture as well as Anterior transposition of left ulnar nerve on but she continued to have problem and again on 08/21/2015 she had Revision of open reduction and internalfixation of left olecranon osteotomy. she has chronic low back and left gluteal pain and had undergone L4-5, L5-S1 radiofrequency ablation on 02/16/17 and getting followed at [facility] pain clinic. Today she was admitted after a fall at home which lead to contusion of Left elbow, left shoulder pian and Comminuted fracture of Left Pubis symphysis and possible Rt sacral non-displaced fracture. Assesment and Plan: 1. Comminuted fracture of Left Pubis symphysis and possible Rt sacral non- displaced fracture. - Her Imaging studies reviewed by Ortho at [facility] and recommended pain control and PT/OT evaluation and also will be followed in Ortho clinic in a week after discharge _will start her Oxycodone 10 mg q4 hrs and 5 mg q8 hrs PRN pain [ stop percocet 5/326 mg q4 hrs PRN pain] -Will continue IV Morphine 2 mg IV q 6 PRN for breakthrough Pain -Continue diabetic oral diet -I have placed consult for PT/OT evaluation and treatment 2. Diabetes II: The pt was on Metformin and had a contrast exposure today ( ) and will restart Metformin on Aug 10, 2017 -Will hold metformin ( re-start on Aug 10, 2017) -Will continue t Amaryl 4 mg daily -continue blood sugar check 4 times a day 3. Constipation: Pt is chronically constipated -Will continue her on bowel regimen 4. GI prophylaxis: Continue protonix daily 5. Nausea: Start IV reglan as needed 5. DVT prophylaxis: Heparin 5000 units q8 hrs 6. Code status: Full Code
[2017-08-08] MEDS: Pantoprazole 40 MG Tab.CR PO SCH (12:20)
[2017-08-08] MEDS: Acetaminophen 325 MG Tab PO PRN (21:54)
[2017-08-08] MEDS: Polyethylene Glycol 3350 Powder 17 GM Packet PO PRN (21:55)
[2017-08-09] MEDS: Heparin Sodium 5,000 Units/ML Vial SUBCUT SCH ×3 (06:18→22:05)
[2017-08-09] MEDS: Pantoprazole 40 MG Tab.CR PO SCH (06:18)
[2017-08-09] MEDS: oxyCODONE 5 MG Tab PO PRN ×2 (06:29→13:00)
[2017-08-09] MEDS ORDERED: CRANBERRY 450 MG PO SCH (09:00)
[2017-08-09] MEDS: Calcium Carbonate/Vitamin D3 1250 MG-200 Unit Tab PO SCH ×2 (09:35→22:02)
[2017-08-09] MEDS: Aspirin 81 MG Tab.EC PO SCH (09:35)
[2017-08-09] MEDS: Glimepiride 2 MG Tab PO SCH ×2 (09:35→17:12)
[2017-08-09] MEDS: atorvaSTATin 20 MG Tab PO SCH (09:36)
[2017-08-09] MEDS: Ascorbic Acid 500 MG Tab PO SCH (09:36)
[2017-08-09] MEDS: Acetaminophen 325 MG Tab PO PRN ×3 (09:39→22:04)
--- NOTE | 2017-08-09 10:10 | PCM.PN ---
- General Info Date of Service: 08/09/17 Admission Dx/Problem (Free Text): Pt was admitted after fall at home with Injury to Left shoulder, Left elbow and left Hip Subjective Update: she is still having pain in left pelvic area, pain is moderate, worse with movements, + nausea or Vomiting, No fever or Chill, has pain with movement of Left arm with swelling Functional Status: Denies: Pain Controlled - Review of Systems General: Denies: Fever Pulmonary: Denies: Shortness of Breath Cardiovascular: Reports: Edema (mild left UE). Denies: Chest Pain Gastrointestinal: Reports: Nausea. Denies: Abdominal Pain Neurological: Denies: Confusion - Patient Data Vitals - Most Recent: Last Vital Signs Temp 35.9 C 08/09/17 08:00 Pulse 76 08/09/17 08:00 Resp 20 08/09/17 08:00 BP 109/51 L 08/09/17 08:00 Pulse Ox 96 08/09/17 08:00 Weight - Most Recent: 68.039 kg I&O - Last 24 Hours: Intake & Output 08/08/17 08/09/17 08/09/17 22:59 06:59 14:59 Intake Total 720 300 Output Total 700 650 Balance 20 -350 Lab Results Last 24 Hours: Laboratory Results - last 24 hr 08/08/17 08/08/17 08/08/17 Range/Units 11:16 16:56 20:36 POC Glucose 161 H 158 H 194 H (83-110) mg/dl 08/09/17 Range/Units 07:48 POC Glucose 104 (83-110) mg/dl Med Orders - Current: Current Medications Acetaminophen (Tylenol) 650 mg PO Q4H PRN PRN Reason: Pain (mild 1-3 )/fever Last Admin: 08/09/17 09:39 Dose: 650 mg Ascorbic Acid (Vitamin C) 500 mg PO DAILY [facility] Last Admin: 08/09/17 09:36 Dose: 500 mg Aspirin (Halfprin) 81 mg PO DAILY [facility] Last Admin: 08/09/17 09:35 Dose: 81 mg Atorvastatin Calcium (Lipitor) 20 mg PO DAILY [facility] Last Admin: 08/09/17 09:36 Dose: 20 mg Calcium Carbonate (Calcium Carbonate/Vitamin D 1250 Mg-200 Unit) 1 tab PO BID [facility] Last Admin: 08/09/17 09:35 Dose: 1 tab Docusate Sodium (Colace) 100 mg PO BID PRN PRN Reason: Constipation Glimepiride (Amaryl) 2 mg PO BIDMEALS [facility] Last Admin: 08/09/17 09:35 Dose: 2 mg Heparin Sodium (Porcine) (Heparin Sodium) 5,000 units SUBCUT Q8H [facility] Last Admin: 08/09/17 06:18 Dose: 5,000 units Loratadine (Claritin) 10 mg PO DAILY PRN PRN Reason: CONGESTION Magnesium Hydroxide (Milk Of Magnesia) 30 ml PO DAILY PRN PRN Reason: Constipation Metoclopramide HCl (Reglan) 5 mg IVPUSH Q6H PRN PRN Reason: Nausea Last Admin: 08/08/17 17:00 Dose: 5 mg Morphine Sulfate (Morphine) 2 mg IVPUSH Q4H PRN PRN Reason: Pain Last Admin: 08/08/17 15:23 Dose: 2 mg Non-Formulary Medication (Nf Drug) 1 each PO TID [facility] Non-Formulary Medication (Cranberry [Cranberry]) 450 mg PO DAILY [facility] Non-Formulary Medication (Nf Drug) 1 each PO BID [facility] Oxycodone HCl (Oxycodone) 10 mg PO Q4H PRN PRN Reason: Pain Last Admin: 08/09/17 06:29 Dose: 10 mg Oxycodone HCl (Oxycodone) 5 mg PO Q8H PRN PRN Reason: Pain Pantoprazole Sodium (Protonix) 40 mg PO ACBREAKFAST [facility] Last Admin: 08/09/17 06:18 Dose: 40 mg Polyethylene Glycol (Miralax) 17 gm PO DAILY PRN PRN Reason: Constipation Last Admin: 08/08/17 21:55 Dose: 17 gm Sodium Chloride (Saline Flush) 10 ml FLUSH ASDIRECTED PRN PRN Reason: Keep Vein Open Last Admin: 08/08/17 08:47 Dose: 10 ml Discontinued Medications Docusate Sodium (Colace) 100 mg PO DAILY PRN PRN Reason: Constipation Heparin Sodium (Porcine) (Heparin Sodium) 5,000 units SUBCUT Q8H [facility] Last Admin: 08/07/17 22:56 Dose: Not Given Iopamidol (Isovue-300 (61%)) 75 ml IVPUSH ONETIME ONE Stop: 08/07/17 16:29 Last Admin: 08/07/17 16:52 Dose: 75 ml Morphine Sulfate (Morphine) 4 mg IVPUSH ONETIME ONE Stop: 08/07/17 15:18 Last Admin: 08/07/17 15:35 Dose: 4 mg Non-Formulary Medication (Cranberry [Cranberry]) 500 mg PO BID [facility] Last Admin: 08/08/17 10:01 Dose: Not Given Non-Formulary Medication (Melatonin [Melatonin]) 3 mg PO BEDTIME [facility] Last Admin: 08/08/17 10:00 Dose: Not Given Non-Formulary Medication (Cranberry [Cranberry]) 450 mg PO BID [facility] Oxycodone/Acetaminophen (Percocet 325-5 Mg) 1 tab PO Q6H PRN PRN Reason: Pain Last Admin: 08/08/17 02:03 Dose: 1 tab - Exam General: Alert, Oriented Neck: Supple Lungs: Clear to Auscultation, Normal Respiratory Effort Cardiovascular: Regular Rate, Regular Rhythm GI/Abdominal Exam: Normal Bowel Sounds, Soft, Non-Tender Extremities: No Pedal Edema - Problem List & Annotations (1) Fracture of pelvis SNOMED Code(s): 24374987 Code(s): S32.9XXA - FRACTURE OF UNSP PARTS OF LUMBOSACRAL SPINE AND PELVIS, INIT Status: Acute Current Visit: Yes - Problem List Review Problem List Initiated/Reviewed/Updated: Yes - My Orders Last 24 Hours: My Active Orders 08/10/17 05:15 BASIC METABOLIC PANEL,BMP [CHEM] AM CBC WITH AUTO DIFF [HEME] AM - Plan Plan:: Lupe Weathers~is a 71 y.o.female with medical history significant for type 2 diabetes mellitus,hyperlipidemia, and history of nephrolithiasis with multiple shockwave lithotripsy, who had closed Left distal Humerus intra-articular fracture in 2014 and had Open reduction internal fixation of left distal humerus fracture as well as Anterior transposition of left ulnar nerve on but she continued to have problem and again on 08/21/2015 she had Revision of open reduction and internalfixation of left olecranon osteotomy. she has chronic low back and left gluteal pain and had undergone L4-5, L5-S1 radiofrequency ablation on 02/16/17 and [facility]. Today she was admitted after a fall at home which lead to contusion of Left elbow, left shoulder pian and Comminuted fracture of Left Pubis symphysis and possible Rt sacral non-displaced fracture. Assesment and Plan: 1. Comminuted fracture of Left Pubis symphysis and possible Rt sacral non- displaced fracture. - Her Imaging studies reviewed by Ortho at [facility] and recommended pain control and PT/OT evaluation and also will be followed in Ortho clinic in a week after discharge _continue pain control with Oxycodone -Will continue IV Morphine 2 mg IV q 6 PRN for breakthrough Pain -Continue diabetic oral diet -consult for PT/OT evaluation and treatment 2. Diabetes II: -Will hold metformin -Will continue Amaryl 4 mg daily -continue blood sugar check 4 times a day use supplemental insulin as needed 3. Constipation: Pt is chronically constipated -Will continue her on bowel regimen 4. GI prophylaxis: Continue protonix daily 5. Nausea: Start IV reglan as needed 5. DVT prophylaxis: Heparin 5000 units q8 hrs 6. Code status: Full Code d/w dr. Ngo today
[2017-08-09] MEDS: Polyethylene Glycol 3350 Powder 17 GM Packet PO SCH (13:02)
[2017-08-09] MEDS: [UNRECOGNIZED DRUG - OTHER] PO SCH ×5 (13:03→22:03)
[2017-08-09] MEDS: MAGNESIUM PO SCH ×4 (13:03→22:03)
[2017-08-09] MEDS: Metoclopramide 10 MG/2 ML SDV IVPUSH PRN (15:28)
[2017-08-09] MEDS: Sodium Chloride 0.9% 10 ML Syringe FLUSH PRN (22:09)
[2017-08-09] MEDS: Morphine 2 MG/ML Syringe IVPUSH PRN (22:10)
[2017-08-10] MEDS: Heparin Sodium 5,000 Units/ML Vial SUBCUT SCH (06:22)
[2017-08-10] MEDS: Pantoprazole 40 MG Tab.CR PO SCH (06:22)
[2017-08-10] MEDS: Acetaminophen 325 MG Tab PO PRN (06:39)
[2017-08-10 07:05] LABS: CHLORIDE,CL 103 mmol/L (101-111); SODIUM,NA 139 mmol/L (135-145)
[2017-08-10 07:35] VITALS: BP 113/50
[2017-08-10] MEDS: Aspirin 81 MG Tab.EC PO SCH (08:35)
[2017-08-10] MEDS: atorvaSTATin 20 MG Tab PO SCH (08:35)
[2017-08-10] MEDS: Calcium Carbonate/Vitamin D3 1250 MG-200 Unit Tab PO SCH (08:35)
[2017-08-10] MEDS: Ascorbic Acid 500 MG Tab PO SCH (08:35)
[2017-08-10] MEDS: Polyethylene Glycol 3350 Powder 17 GM Packet PO SCH (08:36)
[2017-08-10] MEDS: Metoclopramide 10 MG/2 ML SDV IVPUSH PRN (08:36)
[2017-08-10] MEDS: Glimepiride 2 MG Tab PO SCH (08:36)
[2017-08-10] MEDS: [UNRECOGNIZED DRUG - OTHER] PO SCH (08:41)
[2017-08-10] MEDS: MAGNESIUM PO SCH (08:42)
--- NOTE | 2017-08-10 10:45 | PCM.DCSUM1 ---
Discharge Summary - Hospital Course Free Text/Narrative:: Presented with left pelvic pain. 1. Comminuted fracture of Left Pubis symphysis and possible Rt sacral non- displaced fracture. - Her Imaging studies reviewed by Ortho at and recommended pain control and PT/OT evaluation and also will be followed in Ortho clinic in a week after discharge _continue pain control but we'll change oxycodone to lower set to see if that is causing less nausea -Will continue decrease IV Morphine to 1 mg IV q 6 PRN for breakthrough Pain -Continue diabetic oral diet -consult for PT/OT evaluation and treatment 2. Diabetes II: -Will hold metformin -Will continue Amaryl 4 mg daily -continue blood sugar check 4 times a day use supplemental insulin as needed 3. Constipation: Pt is chronically constipated -Will continue her on bowel regimen 4. GI prophylaxis: Continue protonix daily 5. Nausea: Start IV reglan as needed 5. DVT prophylaxis: Heparin 5000 units q8 hrs 6. Code status: Full Code We will transfer to swing bed for further physical therapy and occupational therapy - Discharge Data Discharge Date: 08/10/17 Discharge Disposition: DC/Tfer W/I Hosp To [place] [id number] Condition: Good - Discharge Diagnosis/Problem(s) (1) Fracture of pelvis SNOMED Code(s): 28376695 ICD Code: S32.9XXA - FRACTURE OF UNSP PARTS OF LUMBOSACRAL SPINE AND PELVIS, INIT Status: Acute Current Visit: Yes - Patient Summary/Data Consults: Consultations 08/07/17 19:01 PT Evaluation and Treatment [CONS] Routine 08/07/17 19:02 OT Evaluation and Treatment [CONS] Routine - Patient Instructions Diet: Diabetic Diet Activity: As Tolerated - Discharge Plan Home Medications: Home Meds Ascorbic Acid 500 mg PO DAILY 08/02/15 [History] Aspirin [Low Dose Aspirin EC] 81 mg PO DAILY 08/02/15 [History] Calcium Carbonate/Vitamin D3 [Calcium 600 + Vit D 400 Tablet] 1 each PO BID [History] Cranberry 500 mg PO BID 08/02/15 [History] Docusate Sodium 100 mg PO BID PRN 08/02/15 [History] Glimepiride 1 mg PO WITHBREAKFAST 08/02/15 [History] Glucosamine [Glucosamine Sulfate] 500 mg PO DAILY 08/02/15 [History] Loratadine [Claritin] 10 mg PO DAILY PRN 08/02/15 [History] Melatonin 3 mg PO BEDTIME 08/02/15 [History] atorvaSTATin [Lipitor] 20 mg PO DAILY 08/02/15 [History] metFORMIN [Glucophage XR] 500 mg PO BIDMEALS 08/02/15 [History] Clobetasol Propionate 1 applic TOP ASDIRECTED 05/28/16 [History] Fluticasone Propionate [Flonase Allergy Relief] 1 squirt NASBOTH DAILY 05/28/16 [History] Ibuprofen [Advil] 400 mg PO Q6H PRN 05/28/16 [History] Magnesium Hydroxide [Milk of Magnesia] 30 ml PO DAILY PRN 05/28/16 [History] Polyethylene Glycol 3350 [MiraLAX] 17 gm PO DAILY PRN 08/07/17 [History] - General Info Date of Service: 08/10/17 Functional Status: Denies: Pain Controlled, Ambulating - Review of Systems General: Denies: Weakness Pulmonary: Denies: Shortness of Breath Cardiovascular: Denies: Chest Pain Gastrointestinal: Denies: Abdominal Pain Musculoskeletal: Reports: Other (Continued to have left sided pelvic pain, worse with movements) Neurological: Denies: Confusion - Patient Data Vitals - Most Recent: Last Vital Signs Temp 36.7 C 08/10/17 07:34 Pulse 76 08/10/17 07:34 Resp 16 08/10/17 07:34 BP 113/50 L 08/10/17 07:34 Pulse Ox 99 08/10/17 07:34 Weight - Most Recent: 68.039 kg I&O - Last 24 hours: Intake & Output 08/09/17 08/10/17 08/10/17 22:59 06:59 14:59 Intake Total 420 150 Output Total 1200 750 Balance -780 -600 Lab Results - Last 24 hrs: Laboratory Results - last 24 hr 08/09/17 08/09/17 08/09/17 Range/Units 11:12 16:54 21:04 WBC (5.0-10.0) 10^3/uL RBC (4.2-5.4) 10^6/uL Hgb (12.0-16.0) g/dL Hct (37.0-47.0) % MCV (80-100) fL MCH (27.0-34.0) pg MCHC (33.0-35.0) g/dL Plt Count (150-450) 10^3/uL Neut % (Auto) (42.2-75.2) % Lymph % (Auto) (20.5-50.1) % [place] % (Auto) (2-8) % Eos % (Auto) (1.0-3.0) % Baso % (Auto) (0.0-1.0) % Sodium (135-145) mmol/L Potassium (3.6-5.0) mmol/L Chloride (101-111) mmol/L Carbon Dioxide (21.0-31.0) mmol/L Anion Gap BUN (7-18) mg/dL Creatinine (0.6-1.3) mg/dL Est Cr Clr Drug Dosing mL/min Estimated GFR (MDRD) Glucose (74-105) mg/dL POC Glucose 166 H 173 H 145 H (83-110) mg/dl Calcium (8.4-10.2) mg/dl 08/10/17 08/10/17 08/10/17 Range/Units 06:20 06:20 07:52 WBC 6.2 (5.0-10.0) 10^3/uL RBC 4.07 L (4.2-5.4) 10^6/uL Hgb 12.3 (12.0-16.0) g/dL Hct 37.4 (37.0-47.0) % MCV 91.9 (80-100) fL MCH 30.2 (27.0-34.0) pg MCHC 32.9 L (33.0-35.0) g/dL Plt Count 141 L (150-450) 10^3/uL Neut % (Auto) 59.9 (42.2-75.2) % Lymph % (Auto) 25.4 (20.5-50.1) % [place] % (Auto) 7.6 (2-8) % Eos % (Auto) 6.6 H (1.0-3.0) % Baso % (Auto) 0.5 (0.0-1.0) % Sodium 139 (135-145) mmol/L Potassium 3.9 (3.6-5.0) mmol/L Chloride 103 (101-111) mmol/L Carbon Dioxide 27.0 (21.0-31.0) mmol/L Anion Gap 12.9 BUN 13 (7-18) mg/dL Creatinine 0.4 L (0.6-1.3) mg/dL Est Cr Clr Drug Dosing 116.08 mL/min Estimated GFR (MDRD) > 60 Glucose 98 (74-105) mg/dL POC Glucose 101 (83-110) mg/dl Calcium 8.6 (8.4-10.2) mg/dl Med Orders - Current: Current Medications Acetaminophen (Tylenol) 650 mg PO Q4H PRN PRN Reason: Pain (mild 1-3 )/fever Last Admin: 08/10/17 06:39 Dose: 650 mg Ascorbic Acid (Vitamin C) 500 mg PO DAILY [facility] Last Admin: 08/10/17 08:35 Dose: 500 mg Aspirin (Halfprin) 81 mg PO DAILY [facility] Last Admin: 08/10/17 08:35 Dose: 81 mg Atorvastatin Calcium (Lipitor) 20 mg PO DAILY [facility] Last Admin: 08/10/17 08:35 Dose: 20 mg Calcium Carbonate (Calcium Carbonate/Vitamin D 1250 Mg-200 Unit) 1 tab PO BID [facility] Last Admin: 08/10/17 08:35 Dose: 1 tab Docusate Sodium (Colace) 100 mg PO BID PRN PRN Reason: Constipation Glimepiride (Amaryl) 2 mg PO BIDMEALS [facility] Last Admin: 08/10/17 08:36 Dose: 2 mg Heparin Sodium (Porcine) (Heparin Sodium) 5,000 units SUBCUT Q8H [facility] Last Admin: 08/10/17 06:22 Dose: 5,000 units Loratadine (Claritin) 10 mg PO DAILY PRN PRN Reason: CONGESTION Magnesium Hydroxide (Milk Of Magnesia) 30 ml PO DAILY PRN PRN Reason: Constipation Metoclopramide HCl (Reglan) 5 mg IVPUSH Q6H PRN PRN Reason: Nausea Last Admin: 08/10/17 08:36 Dose: 5 mg Morphine Sulfate (Morphine) 2 mg IVPUSH Q4H PRN PRN Reason: Pain Last Admin: 08/09/17 22:10 Dose: 2 mg Oxycodone HCl (Oxycodone) 10 mg PO Q4H PRN PRN Reason: Pain Last Admin: 08/09/17 13:00 Dose: 10 mg Oxycodone HCl (Oxycodone) 5 mg PO Q8H PRN PRN Reason: Pain Pantoprazole Sodium (Protonix) 40 mg PO ACBREAKFAST [facility] Last Admin: 08/10/17 06:22 Dose: 40 mg Cataplex F Pt's (Own Med) 1 each PO TID [facility] Last Admin: 08/10/17 08:41 Dose: 1 each Magnesium 120mg Pt ('s Own Med) 1 each PO BID [facility] Last Admin: 08/10/17 08:42 Dose: 1 each Polyethylene Glycol (Miralax) 17 gm PO DAILY [facility] Last Admin: 08/10/17 08:36 Dose: 17 gm Sodium Chloride (Saline Flush) 10 ml FLUSH ASDIRECTED PRN PRN Reason: Keep Vein Open Last Admin: 08/09/17 22:09 Dose: 10 ml Discontinued Medications Docusate Sodium (Colace) 100 mg PO DAILY PRN PRN Reason: Constipation Heparin Sodium (Porcine) (Heparin Sodium) 5,000 units SUBCUT Q8H [facility] Last Admin: 08/07/17 22:56 Dose: Not Given Iopamidol (Isovue-300 (61%)) 75 ml IVPUSH ONETIME ONE Stop: 08/07/17 16:29 Last Admin: 08/07/17 16:52 Dose: 75 ml Morphine Sulfate (Morphine) 4 mg IVPUSH ONETIME ONE Stop: 08/07/17 15:18 Last Admin: 08/07/17 15:35 Dose: 4 mg Non-Formulary Medication (Cranberry [Cranberry]) 500 mg PO BID [facility] Last Admin: 08/08/17 10:01 Dose: Not Given Non-Formulary Medication (Melatonin [Melatonin]) 3 mg PO BEDTIME [facility] Last Admin: 08/08/17 10:00 Dose: Not Given Non-Formulary Medication (Cranberry [Cranberry]) 450 mg PO BID [facility] Non-Formulary Medication (Cranberry [Cranberry]) 450 mg PO DAILY [facility] Last Admin: 08/09/17 17:00 Dose: Not Given Oxycodone/Acetaminophen (Percocet 325-5 Mg) 1 tab PO Q6H PRN PRN Reason: Pain Last Admin: 08/08/17 02:03 Dose: 1 tab Polyethylene Glycol (Miralax) 17 gm PO DAILY PRN PRN Reason: Constipation Last Admin: 08/08/17 21:55 Dose: 17 gm - Exam General: Reports: Alert, Oriented Neck: Reports: Supple Lungs: Reports: Clear to Auscultation, Normal Respiratory Effort Cardiovascular: Reports: Regular Rate, Regular Rhythm Extremities: No Pedal Edema *Q Meaningful Use (DIS) - VTE *Q VTE Criteria *Q: - Stroke *Q Stroke Criteria *Q: - AMI *Q AMI Criteria *Q:
== END 2017-08-10 10:49 | disposition swing bed (61) | DRG 536 ==
LOC: DL.ED 12:36 → DL.MS 15:47 → UNDOADMIN 15:47 → DL.MS 15:57
PROVIDERS: ADMIT Internal Medicine Nephrology; ATTEND Internal Medicine Nephrology
DX: S32.592A Other specified fracture of left pubis, initial encounter for closed fracture (principal); S32.502A Unspecified fracture of left pubis, initial encounter for closed fracture; S50.312A Abrasion of left elbow, initial encounter; S32.10XA Unspecified fracture of sacrum, initial encounter for closed fracture; S50.02XA Contusion of left elbow, initial encounter; E11.9 Type 2 diabetes mellitus without complications; Z79.899 Other long term (current) drug therapy; E78.00 Pure hypercholesterolemia, unspecified; K58.9 Irritable bowel syndrome, unspecified; M19.90 Unspecified osteoarthritis, unspecified site; K59.00 Constipation, unspecified; M85.80 Other specified disorders of bone density and structure, unspecified site; E78.5 Hyperlipidemia, unspecified; M25.512 Pain in left shoulder; M25.552 Pain in left hip; Z79.84 Long term (current) use of oral hypoglycemic drugs; K59.09 Other constipation; W19.XXXA Unspecified fall, initial encounter; Y92.009 Unspecified place in unspecified non-institutional (private) residence as the place of occurrence of the external cause; Z79.82 Long term (current) use of aspirin
CPT/HCPCS: 36415; 72193; 73030; 73070; 73502; 80053; 85025; 96374; 99285; A9270; J2270; Q9967; 80048; 82962; 94060; 97162-GP; 97166-GO; 97530-GO; 97535-GO; 99284; J1644; J2765; J7050

== ENCOUNTER 2017-08-10 10:50 | Inpatient (IN) | payer MEDICARE, BC ==
[2017-08-10] MEDS ORDERED: Magnesium Hydroxide 400 MG/5 ML Susp 30 ML Cup PO PRN (11:32)
[2017-08-10] MEDS ORDERED: Docusate Sodium 100 MG Cap PO PRN (11:32)
[2017-08-10] MEDS ORDERED: Loratadine 10 MG Tab PO PRN (11:32)
[2017-08-10] MEDS ORDERED: Metoclopramide 10 MG/2 ML SDV IVPUSH PRN (11:32)
[2017-08-10] MEDS ORDERED: Morphine 2 MG/ML Syringe IVPUSH PRN (11:32)
[2017-08-10] MEDS ORDERED: Sodium Chloride 0.9% 10 ML Syringe FLUSH PRN (11:32)
[2017-08-10] MEDS ORDERED: oxyCODONE 5 MG Tab PO PRN ×2 (11:32)
--- NOTE | 2017-08-10 11:40 | PCM.HP ---
H&P History of Present Illness - General Date of Service: 08/10/17 Admit Problem/Dx: Admission Diagnosis/Problem Admission Diagnosis/Problem Fracture of pelvis Source of Information: Patient - History of Present Illness Initial Comments - Free Text/Narative: presented after a fall. Comminuted fracture of Left Pubis symphysis and possible Rt sacral non- displaced fracture noted. The patient was treated in an acute care setting but she requires further physical and occupational therapy Will be admitted to swing bed - Related Data Allergies/Adverse Reactions: Allergies Allergy/AdvReac Type Severity Reaction Status Date / Time butorphanol tartrate Allergy Cannot Verified 08/07/17 17:38 [From Stadol] Remember gabapentin Allergy Nausea Verified 08/07/17 17:38 penicillin Allergy Rash Verified 08/07/17 17:38 propoxyphene HCl Allergy Nausea Verified 08/07/17 17:38 [From [place]von] Home Medications: Home Meds Ascorbic Acid 500 mg PO DAILY 08/02/15 [History] Aspirin [Low Dose Aspirin EC] 81 mg PO DAILY 08/02/15 [History] Calcium Carbonate/Vitamin D3 [Calcium 600 + Vit D 400 Tablet] 1 each PO BID [History] Cranberry 500 mg PO BID 08/02/15 [History] Docusate Sodium 100 mg PO BID PRN 08/02/15 [History] Glimepiride 1 mg PO WITHBREAKFAST 08/02/15 [History] Glucosamine [Glucosamine Sulfate] 500 mg PO DAILY 08/02/15 [History] Loratadine [Claritin] 10 mg PO DAILY PRN 08/02/15 [History] Melatonin 3 mg PO BEDTIME 08/02/15 [History] atorvaSTATin [Lipitor] 20 mg PO DAILY 08/02/15 [History] metFORMIN [Glucophage XR] 500 mg PO BIDMEALS 08/02/15 [History] Clobetasol Propionate 1 applic TOP ASDIRECTED 05/28/16 [History] Fluticasone Propionate [Flonase Allergy Relief] 1 squirt NASBOTH DAILY 05/28/16 [History] Ibuprofen [Advil] 400 mg PO Q6H PRN 05/28/16 [History] Magnesium Hydroxide [Milk of Magnesia] 30 ml PO DAILY PRN 05/28/16 [History] Polyethylene Glycol 3350 [MiraLAX] 17 gm PO DAILY PRN 08/07/17 [History] Past Medical History HEENT History: Reports: Impaired Vision Cardiovascular History: Reports: Blood Clots/VTE/DVT, High Cholesterol Respiratory History: Reports: None Gastrointestinal History: Reports: Diverticulosis, Hepatitis, Irritable Bowel Syndrome Genitourinary History: Reports: Renal Calculus BENDER HAND History: Reports: Other OB/BYN History: ovarian cyst Musculoskeletal History: Reports: Arthritis, Back Pain, Chronic, Other (See Below) Other Musculoskeletal History: HX OF LEFT DISTAL FIBULA FRACTURE; DDD; CHRONIC LEFT SI JOINT; HX OF HUMERUS AND RADIUS ULNA FRACTURE Neurological History: Reports: None Psychiatric History: Reports: None Endocrine/Metabolic History: Reports: Diabetes, Type II, Obesity/BMI 30+, Osteopenia Hematologic History: Reports: None Immunologic History: Reports: None Oncologic (Cancer) History: Reports: None Dermatologic History: Reports: None - Infectious Disease History Infectious Disease History: Reports: Other (See Below) Other Infectious Disease History: hepatitis but not told which one, was never told which one - Past Surgical History Head Surgeries/Procedures: Reports: None Respiratory Surgical History: Reports: None Female Surgical History: Reports: Hysterectomy, Salpingo-Oophorectomy, Tubal Ligation, Other (See Below) Neurological Surgical History: Reports: None Musculoskeletal Surgical History: Reports: ORIF, Other (See Below) Oncologic Surgical History: Reports: None Dermatological Surgical History: Reports: None Social & Family History - Family History Family Medical History: Noncontributory - Tobacco Use Smoking Status *Q: Never Smoker Second Hand Smoke Exposure: No - Caffeine Use Caffeine Use: Reports: Coffee - Recreational Drug Use Recreational Drug Use: No H&P Review of Systems - Review of Systems: Review Of Systems: See Below General: Denies: Fever Pulmonary: Denies: Shortness of Breath Cardiovascular: Denies: Chest Pain Gastrointestinal: Reports: Nausea. Denies: Abdominal Pain Psychiatric: Denies: Confusion Exam - Exam Exam: See Below - Vital Signs Vital Signs: Last Vital Signs Temp 35.7 C 08/10/17 11:07 Pulse 78 08/10/17 11:07 Resp 20 08/10/17 11:07 BP 114/58 L 08/10/17 11:07 Pulse Ox 97 08/10/17 11:07 Weight: 68.039 kg - Exam General: Alert, Oriented Neck: Supple Lungs: Clear to Auscultation, Normal Respiratory Effort Cardiovascular: Regular Rate, Regular Rhythm Extremities: No Pedal Edema Skin: Warm, Dry Neuro Extensive - Mental Status: Alert, Oriented x3, Normal Mood/Affect *Q Meaningful Use (ADM) - VTE *Q VTE Criteria *Q: - Stroke *Q Stroke Criteria *Q: - AMI *Q AMI Criteria *Q: - Problem List (1) Fracture of humerus SNOMED Code(s): 99553407 ICD Code: S42.309A - UNSP FRACTURE OF SHAFT OF HUMERUS, UNSP ARM, INIT Status: Acute Current Visit: No (2) Fracture of pelvis SNOMED Code(s): 02905479 ICD Code: S32.9XXA - FRACTURE OF UNSP PARTS OF LUMBOSACRAL SPINE AND PELVIS, INIT Status: Acute Current Visit: No Problem List Initiated/Reviewed/Updated: Yes Orders Last 24hrs: Active Orders 24 hr Category Date Time Status Patient Status [ADT] Routine ADT 08/10/17 11:32 Ordered Antiembolic Devices [RC] .Routine Care 08/10/17 11:32 Ordered Antiembolic Devices [RC] PER UNIT ROUTINE Care 08/10/17 11:32 Ordered Bedrest Bathroom Privileges [RC] ASDIRECTED Care 08/10/17 11:32 Ordered Oxygen Therapy [RC] PRN Care 08/10/17 11:32 Ordered POC Glucose [Blood Glucose Check, Bedside] [RC] Care 08/10/17 11:32 Ordered QIDACANDBED Peripheral IV Care [RC] . DIRECTED Care 08/10/17 11:32 Ordered Pulse Oximetry [RC] PRN Care 08/10/17 11:32 Ordered Up With Assistance [RC] ASDIRECTED Care 08/10/17 11:32 Ordered Up to Chair [RC] ASDIRECTED Care 08/10/17 11:32 Ordered VTE/DVT Education [RC] PER UNIT ROUTINE Care 08/10/17 11:32 Ordered VTE/DVT Education [RC] PER UNIT ROUTINE Care 08/10/17 11:32 Ordered Vital Signs [RC] Q4H Care 08/10/17 11:32 Ordered OT Evaluation and Treatment [CONS] Routine Cons 08/10/17 11:32 Ordered PT Evaluation and Treatment [CONS] Routine Cons 08/10/17 11:32 Ordered Consistent Carbohydrate Diet [DIET] Diet 08/10/17 Dinner Ordered Acetaminophen [Tylenol] Med 08/10/17 11:32 Ordered 650 mg PO Q4H PRN Acetaminophen/HYDROcodone [[place] 325-5 MG] Med 08/10/17 11:35 Ordered 1 tab PO Q4H PRN Ascorbic Acid [Vitamin C] Med 08/11/17 09:00 Ordered 500 mg PO DAILY Aspirin [Halfprin] Med 08/11/17 09:00 Ordered 81 mg PO DAILY Calcium Carbonate/Vitamin D3 [Calcium Carbonate/Vitamin Med 08/10/17 21:00 Ordered D 1250 MG-200 Unit] 1 tab PO BID Docusate Sodium [Colace] Med 08/10/17 11:32 Ordered 100 mg PO BID PRN Glimepiride [Amaryl] Med 08/10/17 18:00 Ordered 2 mg PO BIDMEALS Heparin Sodium Med 08/10/17 14:00 Ordered 5,000 units SUBCUT Q8H Loratadine [Claritin] Med 08/10/17 11:32 Ordered 10 mg PO DAILY PRN Magnesium Hydroxide [Milk of Magnesia] Med 08/10/17 11:32 Ordered 30 ml PO DAILY PRN Metoclopramide [Reglan] Med 08/10/17 11:32 Ordered 5 mg IVPUSH Q6H PRN Morphine Med 08/10/17 11:35 Ordered 1 mg IVPUSH Q4H PRN Pantoprazole [ProTONIX] Med 08/11/17 06:00 Ordered 40 mg PO ACBREAKFAST Patient's Own Medication [Ptom] Med 08/10/17 21:00 Ordered 1 each PO BID Patient's Own Medication [Ptom] Med 08/10/17 14:00 Ordered 1 each PO TID Polyethylene Glycol 3350 [MiraLAX] Med 08/11/17 09:00 Ordered 17 gm PO DAILY Sodium Chloride 0.9% [Saline Flush] Med 08/10/17 11:32 Ordered 10 ml FLUSH ASDIRECTED PRN Sodium Chloride 0.9% [Saline Flush] Med 08/10/17 11:32 Ordered 10 ml FLUSH ASDIRECTED PRN atorvaSTATin [Lipitor] Med 08/11/17 09:00 Ordered 20 mg PO DAILY Antiembolic Hose [OM.PC] Per Unit Routine Oth 08/10/17 11:32 Ordered DVT/VTE Prophylaxis Reflex [OM.PC] Routine Oth 08/10/17 11:32 Ordered Peripheral IV Insertion Adult [OM.PC] Stat Oth 08/10/17 11:32 Ordered Medication Orders Acetaminophen (Tylenol) 650 mg PO Q4H PRN PRN Reason: Pain (mild 1-3 )/fever Hydrocodone Bitart/Acetaminophen ([place] 325-5 Mg) 1 tab PO Q4H PRN PRN Reason: Pain Ascorbic Acid (Vitamin C) 500 mg PO DAILY [facility] Aspirin (Halfprin) 81 mg PO DAILY [facility] Atorvastatin Calcium (Lipitor) 20 mg PO DAILY [facility] Calcium Carbonate (Calcium Carbonate/Vitamin D 1250 Mg-200 Unit) 1 tab PO BID [facility] Docusate Sodium (Colace) 100 mg PO BID PRN PRN Reason: Constipation Glimepiride (Amaryl) 2 mg PO BIDMEALS [facility] Heparin Sodium (Porcine) (Heparin Sodium) 5,000 units SUBCUT Q8H [facility] Loratadine (Claritin) 10 mg PO DAILY PRN PRN Reason: CONGESTION Magnesium Hydroxide (Milk Of Magnesia) 30 ml PO DAILY PRN PRN Reason: Constipation Metoclopramide HCl (Reglan) 5 mg IVPUSH Q6H PRN PRN Reason: Nausea Morphine Sulfate (Morphine) 1 mg IVPUSH Q4H PRN PRN Reason: Pain Pantoprazole Sodium (Protonix) 40 mg PO ACBREAKFAST [facility] Patient Own Medication (Ptom) 1 each PO TID [facility] Patient Own Medication (Ptom) 1 each PO BID [facility] Polyethylene Glycol (Miralax) 17 gm PO DAILY [facility] Sodium Chloride (Saline Flush) 10 ml FLUSH ASDIRECTED PRN PRN Reason: Keep Vein Open Sodium Chloride (Saline Flush) 10 ml FLUSH ASDIRECTED PRN PRN Reason: Keep Vein Open Assessment/Plan Comment:: Presented with left pelvic pain. 1. Comminuted fracture of Left Pubis symphysis and possible Rt sacral non- displaced fracture. - Her Imaging studies reviewed by Ortho at [facility] and recommended pain control and PT/OT evaluation and also will be followed in Ortho clinic in a week _continue pain control but we'll change oxycodone to hydrocodone to see if that is causing less nausea -Will continue decrease IV Morphine to 1 mg IV q 6 PRN for breakthrough Pain -Continue diabetic oral diet -consult for PT/OT evaluation and treatment 2. Diabetes II: -Will hold metformin -Will continue Amaryl 4 mg daily -continue blood sugar check 4 times a day use supplemental insulin as needed 3. Constipation: Pt is chronically constipated -Will continue her on bowel regimen 4. GI prophylaxis: Continue protonix daily 5. Nausea: use reglan, zofran as needed 5. DVT prophylaxis: Heparin 5000 units q8 hrs 6. Code status: Full Code
[2017-08-10] MEDS ORDERED: Scopolamine 1.5 MG Transdermal Patch TRDERM PRN (11:41)
[2017-08-10] MEDS: [UNRECOGNIZED DRUG - OTHER] PO SCH ×2 (13:04→17:02)
[2017-08-10] MEDS: Heparin Sodium 5,000 Units/ML Vial SUBCUT SCH ×2 (14:50→21:12)
[2017-08-10] MEDS: Ondansetron 4 MG Tab.DIS PO PRN (16:55)
[2017-08-10] MEDS: Acetaminophen/HYDROcodone 325-5 MG Tab PO PRN (16:55)
[2017-08-10] MEDS: Glimepiride 2 MG Tab PO SCH (17:02)
[2017-08-10] MEDS: Calcium Carbonate/Vitamin D3 1250 MG-200 Unit Tab PO SCH (21:12)
[2017-08-10] MEDS: MAGNESIUM PO SCH (21:13)
[2017-08-11] MEDS: Sodium Chloride 0.9% 10 ML Syringe FLUSH PRN ×2 (04:13→22:34)
[2017-08-11] MEDS: Morphine 2 MG/ML Syringe IVPUSH PRN ×2 (04:13→11:37)
[2017-08-11] MEDS: Heparin Sodium 5,000 Units/ML Vial SUBCUT SCH ×3 (06:08→21:18)
[2017-08-11] MEDS: Pantoprazole 40 MG Tab.CR PO SCH (06:08)
[2017-08-11] MEDS: Ascorbic Acid 500 MG Tab PO SCH (08:41)
[2017-08-11] MEDS: Polyethylene Glycol 3350 Powder 17 GM Packet PO SCH (08:41)
[2017-08-11] MEDS: Acetaminophen/HYDROcodone 325-5 MG Tab PO PRN ×3 (08:41→21:49)
[2017-08-11] MEDS: atorvaSTATin 20 MG Tab PO SCH (08:41)
[2017-08-11] MEDS: Calcium Carbonate/Vitamin D3 1250 MG-200 Unit Tab PO SCH ×2 (08:41→21:14)
[2017-08-11] MEDS: Aspirin 81 MG Tab.EC PO SCH (08:41)
[2017-08-11] MEDS: Glimepiride 2 MG Tab PO SCH ×2 (08:41→17:47)
[2017-08-11] MEDS: [UNRECOGNIZED DRUG - OTHER] PO SCH ×3 (08:46→17:47)
[2017-08-11] MEDS: CRANBERRY 500 MG PO SCH (08:46)
[2017-08-11] MEDS: MAGNESIUM PO SCH ×2 (08:46→21:16)
[2017-08-11] MEDS: Ondansetron 4 MG Tab.DIS PO PRN (11:40)
[2017-08-11] MEDS: Ciprofloxacin 500 MG Tab PO SCH (21:14)
[2017-08-11] MEDS: Acetaminophen 325 MG Tab PO PRN (21:50)
[2017-08-12] MEDS: Heparin Sodium 5,000 Units/ML Vial SUBCUT SCH ×3 (05:46→21:39)
[2017-08-12] MEDS: Pantoprazole 40 MG Tab.CR PO SCH (05:46)
[2017-08-12] MEDS: Acetaminophen/HYDROcodone 325-5 MG Tab PO PRN ×4 (05:47→21:38)
[2017-08-12] MEDS: Glimepiride 2 MG Tab PO SCH ×2 (08:39→17:47)
[2017-08-12] MEDS: [UNRECOGNIZED DRUG - OTHER] PO SCH ×3 (08:40→17:51)
[2017-08-12] MEDS: CRANBERRY 500 MG PO SCH (08:43)
[2017-08-12] MEDS: MAGNESIUM PO SCH ×2 (08:45→21:32)
[2017-08-12] MEDS: Aspirin 81 MG Tab.EC PO SCH (10:45)
[2017-08-12] MEDS: atorvaSTATin 20 MG Tab PO SCH (10:45)
[2017-08-12] MEDS: Ciprofloxacin 500 MG Tab PO SCH ×2 (10:46→21:29)
[2017-08-12] MEDS: Calcium Carbonate/Vitamin D3 1250 MG-200 Unit Tab PO SCH ×2 (10:46→21:29)
[2017-08-12] MEDS: Polyethylene Glycol 3350 Powder 17 GM Packet PO SCH (10:47)
[2017-08-12] MEDS: Ascorbic Acid 500 MG Tab PO SCH (10:48)
[2017-08-12] MEDS: metFORMIN 500 MG Tab PO SCH ×2 (13:26→17:45)
[2017-08-12] MEDS: Patient's Own Medication 1 Each PO SCH (21:34)
[2017-08-13] MEDS: Acetaminophen/HYDROcodone 325-5 MG Tab PO PRN ×5 (01:37→20:54)
[2017-08-13] MEDS: Heparin Sodium 5,000 Units/ML Vial SUBCUT SCH ×3 (05:35→22:06)
[2017-08-13] MEDS: Pantoprazole 40 MG Tab.CR PO SCH (05:35)
[2017-08-13] MEDS: Polyethylene Glycol 3350 Powder 17 GM Packet PO SCH (09:30)
[2017-08-13] MEDS: Glimepiride 2 MG Tab PO SCH ×2 (09:31→17:28)
[2017-08-13] MEDS: Calcium Carbonate/Vitamin D3 1250 MG-200 Unit Tab PO SCH ×2 (09:31→20:52)
[2017-08-13] MEDS: metFORMIN 500 MG Tab PO SCH ×2 (09:31→17:28)
[2017-08-13] MEDS: Ascorbic Acid 500 MG Tab PO SCH (09:31)
[2017-08-13] MEDS: Aspirin 81 MG Tab.EC PO SCH (09:31)
[2017-08-13] MEDS: atorvaSTATin 20 MG Tab PO SCH (09:31)
[2017-08-13] MEDS: Ciprofloxacin 500 MG Tab PO SCH (09:31)
[2017-08-13] MEDS: [UNRECOGNIZED DRUG - OTHER] PO SCH ×3 (09:32→20:50)
[2017-08-13] MEDS: MAGNESIUM PO SCH ×2 (09:32→20:50)
[2017-08-13] MEDS: Patient's Own Medication 1 Each PO SCH ×2 (09:33→20:51)
[2017-08-13] MEDS ORDERED: 50% Dextrose in Water 50 ML Syringe IVPUSH PRN (10:35)
[2017-08-13] MEDS ORDERED: Insulin Aspart 100 Units/ML 3 ML Pen SUBCUT SCH ×2 (10:45→22:01)
[2017-08-13] MEDS: Nitrofurantoin Monohydrate/Macrocrystalline 100 MG Cap PO SCH ×2 (11:18→20:52)
[2017-08-13] MEDS: Acetaminophen 325 MG Tab PO PRN (20:52)
[2017-08-14] MEDS: Heparin Sodium 5,000 Units/ML Vial SUBCUT SCH ×3 (06:07→21:30)
[2017-08-14] MEDS: Pantoprazole 40 MG Tab.CR PO SCH (06:09)
[2017-08-14] MEDS: Acetaminophen/HYDROcodone 325-5 MG Tab PO PRN ×2 (06:10→19:24)
[2017-08-14 07:02] LABS: CHLORIDE,CL 102 mmol/L (101-111); SODIUM,NA 140 mmol/L (135-145)
[2017-08-14] MEDS: Ascorbic Acid 500 MG Tab PO SCH (09:14)
[2017-08-14] MEDS: Glimepiride 2 MG Tab PO SCH ×2 (09:14→17:55)
[2017-08-14] MEDS: Nitrofurantoin Monohydrate/Macrocrystalline 100 MG Cap PO SCH ×2 (09:15→21:07)
[2017-08-14] MEDS: atorvaSTATin 20 MG Tab PO SCH (09:15)
[2017-08-14] MEDS: Calcium Carbonate/Vitamin D3 1250 MG-200 Unit Tab PO SCH ×2 (09:15→21:06)
[2017-08-14] MEDS: Aspirin 81 MG Tab.EC PO SCH (09:15)
[2017-08-14] MEDS: metFORMIN 500 MG Tab PO SCH ×2 (09:15→17:56)
[2017-08-14] MEDS: MAGNESIUM PO SCH ×2 (09:16→21:08)
[2017-08-14] MEDS: Patient's Own Medication 1 Each PO SCH ×2 (09:16→21:09)
[2017-08-14] MEDS: [UNRECOGNIZED DRUG - OTHER] PO SCH ×3 (09:16→17:56)
[2017-08-14] MEDS: Polyethylene Glycol 3350 Powder 17 GM Packet PO SCH (09:17)
[2017-08-14] MEDS: Insulin Aspart 100 Units/ML 3 ML Pen SUBCUT SCH ×4 (12:35→21:18)
[2017-08-14] MEDS: Acetaminophen 325 MG Tab PO PRN (21:09)
[2017-08-15] MEDS: Acetaminophen/HYDROcodone 325-5 MG Tab PO PRN ×6 (00:01→22:36)
[2017-08-15] MEDS: Acetaminophen 325 MG Tab PO PRN ×3 (03:00→22:37)
[2017-08-15] MEDS: Heparin Sodium 5,000 Units/ML Vial SUBCUT SCH ×3 (06:10→21:46)
[2017-08-15] MEDS: Pantoprazole 40 MG Tab.CR PO SCH (06:11)
[2017-08-15] MEDS: Glimepiride 2 MG Tab PO SCH ×2 (08:04→17:48)
[2017-08-15] MEDS: metFORMIN 500 MG Tab PO SCH ×2 (08:04→17:48)
[2017-08-15] MEDS: Calcium Carbonate/Vitamin D3 1250 MG-200 Unit Tab PO SCH ×2 (08:32→21:44)
[2017-08-15] MEDS: Ascorbic Acid 500 MG Tab PO SCH (08:32)
[2017-08-15] MEDS: Nitrofurantoin Monohydrate/Macrocrystalline 100 MG Cap PO SCH ×2 (08:32→21:44)
[2017-08-15] MEDS: Aspirin 81 MG Tab.EC PO SCH (08:32)
[2017-08-15] MEDS: atorvaSTATin 20 MG Tab PO SCH (08:33)
[2017-08-15] MEDS: Polyethylene Glycol 3350 Powder 17 GM Packet PO SCH (08:33)
[2017-08-15] MEDS: [UNRECOGNIZED DRUG - OTHER] PO SCH ×4 (08:36→18:27)
[2017-08-15] MEDS: MAGNESIUM PO SCH ×2 (08:37→21:45)
[2017-08-15] MEDS: Patient's Own Medication 1 Each PO SCH ×2 (08:38→21:46)
[2017-08-15] MEDS: Insulin Aspart 100 Units/ML 3 ML Pen SUBCUT SCH ×3 (12:43→20:36)
[2017-08-16] MEDS: Acetaminophen/HYDROcodone 325-5 MG Tab PO PRN ×4 (04:51→16:48)
[2017-08-16] MEDS: Insulin Aspart 100 Units/ML 3 ML Pen SUBCUT SCH ×4 (04:59→17:53)
[2017-08-16] MEDS: Pantoprazole 40 MG Tab.CR PO SCH (05:58)
[2017-08-16] MEDS: Heparin Sodium 5,000 Units/ML Vial SUBCUT SCH ×2 (05:58→13:41)
[2017-08-16] MEDS: Acetaminophen 325 MG Tab PO PRN ×3 (05:58→15:27)
[2017-08-16] MEDS: MAGNESIUM PO SCH (08:29)
[2017-08-16] MEDS: [UNRECOGNIZED DRUG - OTHER] PO SCH ×2 (08:29→12:25)
[2017-08-16] MEDS: Polyethylene Glycol 3350 Powder 17 GM Packet PO SCH (08:30)
[2017-08-16] MEDS: Ascorbic Acid 500 MG Tab PO SCH (08:31)
[2017-08-16] MEDS: Calcium Carbonate/Vitamin D3 1250 MG-200 Unit Tab PO SCH (08:31)
[2017-08-16] MEDS: Nitrofurantoin Monohydrate/Macrocrystalline 100 MG Cap PO SCH (08:31)
[2017-08-16] MEDS: Glimepiride 2 MG Tab PO SCH (08:32)
[2017-08-16] MEDS: Aspirin 81 MG Tab.EC PO SCH (08:32)
[2017-08-16] MEDS: metFORMIN 500 MG Tab PO SCH (08:32)
[2017-08-16] MEDS: Patient's Own Medication 1 Each PO SCH (08:33)
[2017-08-16] MEDS ORDERED: atorvaSTATin 20 MG Tab PO SCH (09:00)
--- NOTE | 2017-08-16 12:52 | PN ---
DATE: 08/16/2017 SUBJECTIVE: Mrs. Sarahy Pugh is a 71-year-old female with medical history significant for type 2 diabetes mellitus, was admitted to the hospital after she had a fall and was noted to have comminuted fracture of the left pubic symphysis and possible right sacral nondisplaced fracture and was admitted to the swing bed for continued physical therapy and occupational therapy and pain control. While in the swing bed, the patient had complications with urinary tract infection, requiring oral antibiotic therapy. For the last 24 hours, the patient continues to have pain to the lower pelvic region. She grades the pain as 4 to 5/10 in intensity, aggravated on ambulation, relieved with rest and pain medication, nonradiating type of pain, not associated with any nausea or vomiting. Denies any chest pains. No shortness of breath. No abdominal pain. No nausea. No vomiting. No diarrhea. REVIEW OF SYSTEMS: Cardiovascular, respiratory, gastrointestinal, Neurology, constitutional were all evaluated. PHYSICAL EXAMINATION: Vital Signs: Temperature of 98.3, pulse of 76, blood pressure 108/46, respiratory rate of 20, saturating at 98% on room air. General Appearance: Patient is well oriented to time, place, and person. Follows commands spontaneously. Cardiovascular System: S1, S2 heard with normal intensity. No gallops. Respiratory: Clear to auscultation bilaterally. No wheeze. No crepitations. Abdomen: Soft. Bowel sounds are positive. Nontender. No rigidity. Extremities: No edema in bilateral lower extremities. Neurology: No gross focal neurological deficit. MEDICATIONS: Reviewed. 1. Continue with [place] 5/325 mg every 4 hours as needed for pain. 2. Tylenol 650 every 4 hours as needed for mild pain. 3. Aspirin 81 mg daily. 4. Lipitor 20 mg daily. 5. Calcium carbonate/vitamin D 1 tablet twice a day. 6. Docusate sodium 100 mg twice a day. 7. Amaryl 2 mg twice a day. 8. Heparin 5000 subcutaneous q.8 hourly. 9. NovoLog supplemental scale. 10.Claritin 10 mg daily. 11.Milk of magnesia 30 mL oral daily as needed for constipation. 12.Metformin 500 mg twice a day. 13.Protonix 40 mg at breakfast. 14.Scopolamine patch. LABORATORY DATA: No new labs ordered for today. ASSESSMENT: 1. Comminuted fracture of the left pubic symphysis and possible right sacral nondisplaced fracture. 2. Type 2 diabetes mellitus. PLAN: 1. Lower pelvic pain. The patient is noted to have comminuted fracture of the left pubic symphysis and also right sacral nondisplaced fracture. The patient is currently on pain medications. Her pain seems to be improving. She is evaluated by Physical Therapy and Occupational Therapy. She is able to ambulate well with help of a walker. The patient would possibly be discharged home in the a.m. Continue the oral pain medications for now. 2. Type 2 diabetes mellitus. The patient continues to have low blood sugars. She is noted to be on Amaryl and metformin, continue the same. Educate the patient to have evening snack to avoid any low blood sugars in the morning. Otherwise, her blood sugars to the rest of the day seems to be stable. 3. Deep venous thrombosis prophylaxis. Continue heparin for deep venous thrombosis prophylaxis. 4. Possible discharge in a.m. if she remains hemodynamically stable. [facility] /[id number]
--- NOTE | 2017-08-16 15:40 | US ---
Clinical history: 68-year-old female with history of "bilateral nephrolithiasis", hysterectomy who no w complains of pelvic pain (recent "pubic symphysis fracture" CT 07 August 2017 associated with fa ll. "No extravasation contrast but mild thickening of the urinary bladder wall". Interpretation: Incompletely but symmetric distended urinary bladder without sign of intrinsic or ext rinsic hematoma. Apparent uniform mild bladder wall thickening suggesting chronic outlet obstruction. No intraluminal mass or stones.
[2017-08-16 16:19] VITALS: BP 107/56
--- NOTE | 2017-08-17 07:15 | DISCH ---
ADMITTING DIAGNOSIS: Comminuted, moderately impacted fracture of the left symphysis pubis with extension into the medial superior pubic ramus, displaced by approximately 1 cm, requiring continued physical therapy and occupational therapy. DISCHARGE DIAGNOSIS: Comminuted, moderately impacted fracture of the left symphysis pubis with extension to the medial superior pubic ramus, improved with physical therapy. She is able to ambulate with the help of walker at this time. HISTORY OF PRESENTING ILLNESS: Mrs. Sarahy Andrade is a 71-year-old female with medical history significant for type 2 diabetes mellitus, admitted with a fall and was noted to have comminuted, moderately impacted fracture of the left symphysis pubis with extension into the medial superior pubic ramus bone and was transferred to the swing bed. The patient continued with physical therapy and occupational therapy while in the swing bed. The patient was noted to have mild urinary tract infection. After getting admitted to the swing bed, she was started on ciprofloxacin, but later, her cultures grew E. coli, which was resistant to ciprofloxacin, so we had to change her antibiotic to Macrobid. She responded well to the treatment. She was evaluated by Physical Therapy and Occupational Therapy. She was able to ambulate well with the help of walker, and Physical Therapy and Occupational Therapy felt that the patient could be discharged to home. The patient is being discharged home today with continued oral antibiotics for her presumed urinary tract infection. She remained hemodynamically stable on this admission. She is discharged home in stable condition. DISCHARGE MEDICATIONS: Include: 1. Ascorbic acid 500 mg daily. 2. Aspirin 81 mg daily. 3. Calcium carbonate/vitamin D one each twice a day. 4. Clobetasol propionate one topical as directed. 5. Cranberry 500 mg twice a day. 6. Docusate sodium 100 mg twice a day. 7. Fluticasone 1 squirt to nostril both daily. 8. Glimepiride 1 mg with breakfast. 9. Glucosamine 500 mg daily. 10.Ibuprofen 400 mg oral every 6 hours as needed. 11.Loratadine 10 mg daily. 12.Magnesium hydroxide 30 mL daily. 13.Melatonin 3 mg oral at bedtime. 14.Nitrofurantoin 100 mg twice a day. 15.MiraLax 17 g oral daily. 16.Lipitor 20 mg daily. 17.Metformin 500 mg twice a day with each meal. PHYSICAL EXAMINATION: Vital Signs: On the day of discharge, vitals, temperature of 98.3, pulse of 76, blood pressure 108/46, respiratory rate of 20, saturating at 98% on room air. General Appearance: The patient is well oriented to time, place, and person. Follows commands spontaneously. Cardiovascular System: S1, S2 heard with normal intensity. No gallops. Respiratory: Clear to auscultation bilaterally. No wheeze. No crepitations. Abdomen: Soft. Bowel sounds positive. Nontender. No rigidity. Extremities: No edema in bilateral lower extremities. Neurology: No gross focal neurological deficits. Extremities: No edema in bilateral lower extremities. Neurology: No gross focal neurological deficits. CONDITION ON ADMISSION: Poor. CONDITION ON DISCHARGE: From swing bed, stable. ACTIVITY: As tolerated. Use walker all the time. Avoid any falls. DIET: Consistent carbohydrate diet. FOLLOWUP: Follow up with primary care physician in the next 1 to 2 weeks of time. DISCHARGE INSTRUCTIONS: We will get an appointment for her to get ultrasound of the bladder, as there was some mild fluid along the anterior and inferior margins of the urinary bladder extending into the deep pelvis on the CT scan of the pelvis done on August 07. She will need an ultrasound of the bladder to make sure the patient does not have any bladder rupture which is less likely at this time. Follow up with primary care physician in the next 1 week of time. Spent over 35 minutes of time in evaluating and treating this patient and making discharge plans. [facility] /[id number]
== END 2017-08-16 17:15 | disposition home or self-care (01) | DRG 560 ==
LOC: DL.MS 10:50 → UNDOADMIN 10:50 → DL.MS 11:32
PROVIDERS: ADMIT Internal Medicine; ATTEND Internal Medicine
DX: S32.592D Other specified fracture of left pubis, subsequent encounter for fracture with routine healing (principal); N39.0 Urinary tract infection, site not specified; S32.10XD Unspecified fracture of sacrum, subsequent encounter for fracture with routine healing; S42.309D Unspecified fracture of shaft of humerus, unspecified arm, subsequent encounter for fracture with routine healing; W19.XXXD Unspecified fall, subsequent encounter; E11.9 Type 2 diabetes mellitus without complications; K59.09 Other constipation; Z88.0 Allergy status to penicillin; Z88.8 Allergy status to other drugs, medicaments and biological substances; Z79.82 Long term (current) use of aspirin; Z79.84 Long term (current) use of oral hypoglycemic drugs; Z79.899 Other long term (current) drug therapy; H54.7 Unspecified visual loss; Z86.718 Personal history of other venous thrombosis and embolism; E78.00 Pure hypercholesterolemia, unspecified; M19.90 Unspecified osteoarthritis, unspecified site; E66.9 Obesity, unspecified; Z68.30 Body mass index [BMI] 30.0-30.9, adult; M85.80 Other specified disorders of bone density and structure, unspecified site; B96.20 Unspecified Escherichia coli [E. coli] as the cause of diseases classified elsewhere
CPT/HCPCS: 36415; 76857; 80048; 81001; 82962; 85027; 87086; 87088; 87186; 97110-GO; 97110-GP; 97116-GP; 97162-GP; 97165-GO; 97530-GO; 97535-GO; A9270-GY; J1644; J1815-GY; J2270; J7050